=== PATIENT | female | born 1985 | race Caucasian/White ===

== ENCOUNTER 2023-11-03 07:49 | Outpatient (CLI) | payer OTHER, SELFPAY | END 2023-11-03 07:50 | disposition home or self-care (01) | LOC: ANHAUDASC 07:57 | PROVIDERS: PCP Family Medicine; Visit Provider Family Medicine | DX: H90.42 Sensorineural hearing loss, unilateral, left ear, with unrestricted hearing on the contralateral side (principal) | CPT/HCPCS: 92557; 92567 ==

== ENCOUNTER 2024-10-22 08:57 | Outpatient (CLI) | payer OTHER, SELFPAY ==
--- OUTSIDE RECORDS SUMMARY | 2024-10-22 09:49 | XMS_ITS | Referral Summary ---
Author Organization [facility] s Address [address] [place] [address] Care Team Providers Care Crop And Soil Technician Name Role Phone Kalli Salmeron MD Primary Care Provider + Kalli Salmeron MD Unavailable [phone] Allergies No known active allergies Medications sertraline (ZOLOFT) 100 mg tablet Take 100 mg by mouth maintenance person before breakfast 4 9 Active multivitamin capsule Take 1 capsule by mouth maintenance person before breakfast Active doxycycline hyclate 100 mg capsule Take 100 mg by mouth 2 (two) times a day 1 Active Active Problems Problem Noted Date Diagnosed Date Nipple discharge in female 04/07/2021 Abdominal pain 09/21/2020 Acute bronchitis 09/21/2020 Pharyngitis 09/21/2020 Postoperative hematoma of holloway bcutaneous tissue following non-dermatologic procedure 04/26/2019 Overview (04/26/2019): Added automatically from request for surgery [id number] Bilateral nipple discharge 02/11/2019 High-risk 06/10/2013 Antepartum hemorrhage 06/05/2013 Antepartum cervical incompetence 06/05/2013 Immunizations Immunization Administration Dates Next Due Influenza, Trivalent, High D ose, Split, Preservative Free, Intramuscular 07/31/2015,07/31/2014,09/28/2013 Tdap 09/28/2014,07/31/2013 Social History Tobacco Use Types Packs/Day Years Used Date Smoking Tobacco: Never Smokeless Tobacco: Never Tobacco Cessation:Counseling Given: No Alcohol Use Standard Drinks/Week Comments Yes 1 (1 standard drink = 0.6 oz pur e alcohol) AUDIT-C Answer Date Recorded Frequency of Alcohol Consumption 2-4 times a mon02/11/2019 Average Number of Drinks Not on file 019 Frequency of Binge Drinking Not on file 01/28 Comments No Sex and Gender Information Value Date Recorded Sex Assigned at Not on file Legal Sex Female 4:49 AM JAVASCRIPT DEVELOPER Gender Identity Female 04/04/2019 12:13 PM CDT Sexual Orientation Straight 04/04/2019 12 :13 PM CDT Last Filed Vital Signs Vital Sign Reading Time Taken Comments Blood Pressure 149/87 09/21/2020 3:29 PM JAVASCRIPT DEVELOPER Pulse 85 09/21/2020 3:29 PM JAVASCRIPT DEVELOPER Temperature 36.4 C (97.5 F) 04/26/2019 7:43 PM CDT Respiratory Rate 18 04/26/2019 8:30 PM CDT Oxygen Saturation 99% 04/26/2019 8:30 PM CDT Inhaled Oxygen Concentration - - Weight 88.9 kg (196 lb) 12/11/2023 2:01 PM CDT Height 157.5 cm (5' 2 ) 12/11/2023 2:01 PM CDT Body Mass Index 35.85 12/11/2023 2:01 PM CDT Plan of Treatment Not on file Insurance [facility] ACCESS ANTHEM ACCESS ANTHEM ACCESS [facility] CHOICE PLUS [facility] HMO/PPO Address: [place] [address] Care Teams Crop And Soil Technician Relationship Specialty Start Date End Date Kalli Salmeron MD PCP - General Family Medicine 08/25/20 Kalli Salmeron MD Family Medicine 08/25/20
--- OUTSIDE RECORDS SUMMARY | 2024-10-22 09:49 | XMS_ITS | Clinical Summary ---
Author Organization [facility] s Address [address] [place] [address] Care Team Providers Care Car Worker Helper Name Role Phone Kalli Salmeron MD Primary Care Provider + Kalli Salmeron MD Unavailable [phone] Allergies No known active allergies Medications sertraline (ZOLOFT) 100 mg tablet Take 100 mg by mouth logistics clerk before breakfast 4 9 Active multivitamin capsule Take 1 capsule by mouth logistics clerk before breakfast Active doxycycline hyclate 100 mg capsule Take 100 mg by mouth 2 (two) times a day 1 Active Active Problems Problem Noted Date Diagnosed Date Nipple discharge in female 04/07/2021 Abdominal pain 09/21/2020 Acute bronchitis 09/21/2020 Pharyngitis 09/21/2020 Postoperative hematoma of holloway bcutaneous tissue following non-dermatologic procedure 04/26/2019 Overview (04/26/2019): Added automatically from request for surgery [id number] Bilateral nipple discharge 02/11/2019 High-risk 06/10/2013 Antepartum hemorrhage 06/05/2013 Antepartum cervical incompetence 06/05/2013 Immunizations Immunization Administration Dates Next Due Influenza, Trivalent, High D ose, Split, Preservative Free, Intramuscular 07/31/2015,07/31/2014,09/28/2013 Tdap 09/28/2014,07/31/2013 Surgical History Surgery Date Site/Laterality Comments SECTION 07/31/2013 - 07/30/2014 DILATION AND CURETTAGE OF UTERUS 07/31/2015 - 07/30/2016 BREAST BIOPSY 02/25/2019 Left INTRAUTERINE DEVICE INSERTION removed 01/2018 Medical History Medical History Date Comments Depression Anxiety Family History Medical History Relation Name Comments Hypertension Father Hypertension - (Added by TW Conv) Stroke Maternal Grandfather Stroke Syndrome - (Added by TW Conv) Melanoma Mother's Sister Diabetes Paternal Grandmother Diabete s Mellitus - (Added by TW Conv) Anesthesia problems Neg Hx Relation Name Status Comments Father Maternal Grandfather Mother's Sister Paternal Grandmother Social History Tobacco Use Types Packs/Day Years [...] on file Legal Sex Female 4:49 AM TICKET AGENT Gender Identity Female 04/04/2019 12:13 PM CDT Sexual Orientation Straight 04/04/2019 12 :13 PM CDT Obstetrics History Para Term AB IAB SAB Ectopic Multiple Livin g Live Births 2 1 1 Date Outcome GA Total Labor Labor/2nd/3rd Weight Sex Type Anes PTL Arin A1 A5 Name Clin Term Last Filed Vital Signs Vital Sign Reading Time Taken Comments Blood Pressure 149/87 09/21/2020 3:29 PM TICKET AGENT Pulse 85 09/21/2020 3:29 PM TICKET AGENT Temperature 36.4 C (97.5 F) 04/26/2019 7:43 PM CDT Respiratory Rate 18 04/26/2019 8:30 PM CDT Oxygen Saturation 99% 04/26/2019 8:30 PM CDT Inhaled Oxygen Concentration - - Weight 88.9 kg (196 lb) 12/11/2023 2:01 PM CDT Height 157.5 cm (5' 2 ) 12/11/2023 2:01 PM CDT Body Mass Index 35.85 12/11/2023 2:01 PM CDT Plan of Treatment Health Maintenance Due Date Last Done Comments Cervical Cancer Screening 1987 Depression Screening 1987 Hepatitis C Screening 1987 Varicella Vaccines (1 of 2 - 13+ 2-dose series) 11/14/2000 Hepatitis B Screening 11/14/2005 Regular Well Visit/Exam 18-64 11/14/2005 Covid-19 Vaccine (2023- season) 2024 05/06/2021, 08/06/2020, 07/20/2020 Influenza Vaccine (#1) 2024 3, 04/27/2023, 04/29/2022, Additional history exists DTaP/Tdap/Td Vaccine (3 - Td or Tdap) 09/28/2024 09/28/2014, 07/31/2013 HPV Vaccines Aged Out No longer eligi ble based on patient's age to complete this topic Pneumococcal vaccine <65 Aged Out No longer eligible based on patient's age to complete this topic Insurance ANTHEM ACCESS ANTHEM ACCESS [facility] HMO/PPO Address: [address] [address] [place] [address] Care Teams Car Worker Helper Relationship Specialty Start Date End Date Kalli Salmeron MD PCP - General Family Medicine 08/25/20 Kalli Salmeron MD Family Medicine 08/25/20
--- OUTSIDE RECORDS SUMMARY | 2024-10-22 09:49 | XMS_ITS | Data Portability ---
Author Organization [facility] Address [address] [facility] [place] [address] Care Team Providers Care Field Training Manager Name Role Phone KELL ALFARO [employer] Unavailable Assessment Encounter Date Assessment Date Assessment LastModified by Organization Details LastModified Time 05/20/2016 05/20/2016 ACOG completed. Patient education handouts given. Not available 05/20/2016 11:24:52 Plan of Treatment Reminders Order Date Submit Date Provider Last Modified By Organization Details Last Modified Time Details Appointments None recorded. Lab biopsy, endometri al 2015 016 DBA_PATCH_2 [id number] [facility], [address] [place] [address], [address], 6 04:32:07 HCG, intact + beta subunit, quant, serum or plasma - Please fax results to [facility] 2015 016 DBA_PATCH_2 [id number] [facility], [address] [place] [address], [address], 6 04:31:34 HCG, intact + beta subunit, quant, serum or plasma - Please fax results to [facility] 2015 016 DBA_PATCH_2 [id number] [facility], [address] [place] [address], [address], 6 04:31:49 CBC w/ auto diff - Please fax results to [facility] 2015 016 [email or web address] [facility], [address] [place], [address], 6 09:16:40 CBC w/ auto diff - Please fax results to [facility] 2015 016 DBA_PATCH_2 [id number] [facility], [address] [place], [address], 6 04:32:02 CMP, serum or plasma 2015 016 DBA_PATCH_2 [id number] [facility], [address] [place] [address], [address], 6 04:31:45 CMP, serum or plasma 2015 016 DBA_PATCH_2 [id number] [facility], [address] [place] [address], [address], 6 04:32:02 Referral None recorded. Procedures None recorded. Surgeries None recorded. Imaging US, pelvis 2015 016 DBA_PATCH_2 [id number] [facility] ([facility]), [address] [place], [address], 6 04:31:59 Medication Orders misoprost ol 100 mcg tablet 2015 016 [email or web address] [facility], [address] [place], [address], 7 14:51:27 ferrous sulfate 325 mg (65 mg iron) tablet 2015 016 DBA_PATCH_2 [id number] [facility], [address] [place], [address], 6 04:31:42 Vitamin tablet 2015 016 DBA_PATCH_2 [id number] [facility], [address] , [place], [address], 6 04:31:33 Patient TargetsNo targets recorded. Patient Instructions Encounter Date Encounter Id Patient Instructions Last Modified By Organization Details Last Modified Time 06/16/2016 [id number] admit to outpatient* Not available 07/16/2016 04:31:43 bleeding after surgery: care instructions [email or web address] Not available 06/16/2016 11:52:23 [email or web address] Not available 07/16/2016 04:31:45 anemia: care instructions [email or web address] Not available 06/16/2016 18:12:09 Reason for Referral None Reported. Results Created Date Observation Date Name Description Value Unit Range Abnormal Flag Note LastModifiedBy Organization Detail LastModifiedTime 05/05/20 16 05/05/2016 urina lysis , dipst ick Leukocytes Small Not Available In-Offi ce Order Internal Use Only DO Not Attach Compendium DO Not Attach Compendium, Do Not Delete/merge, [id number] 05/05/2016 11:23:49 05/05/20 16 05/05/2016 urina lysis , dipst ick Nitrite negati ve Not Available In-Office Order Internal Use Only DO Not Attach Compendium DO Not Attach Compendium, Do Not Delete/merge, [id number] 05/05/2016 11:23:49 05/05/20 16 05/05/2016 urina lysis , dipst ick Urobilinogen .2 Not Available In-Of fice Order Internal Use Only DO Not Attach Compendium DO Not Attach Compendium, Do Not Delete/merge, [id number] 05/05/2016 11:23:49 05/05/20 16 05/05/2016 urina lysis , dipst ick Protein Negati ve Not Available In-Office Order Internal Use Only DO Not Attach Compendium DO Not Attach Compendium, Do Not Delete/merge, [id number] 05/05/2016 11:23:49 05/05/20 16 05/05/2016 urina lysis , dipst ick pH 7.0 Not Available In-Office Order Internal Use Only DO Not Attach Compendium DO Not Attach Compendium, Do Not Delete/merge, [id number] 05/05/2016 11:23:49 05/05/20 16 05/05/2016 urina lysis , dipst ick Blood Negati ve Not Available In-Office Order Internal Use Only DO Not Attach Compendium DO Not Attach Compendium, Do Not Delete/merge, [id number] 05/05/2016 11:23:49 05/05/20 16 05/05/2016 urina lysis , dipst ick Specific [place] 1.010 Not Available In-Off ice Order Internal Use Only DO Not Attach Compendium DO Not Attach Compendium, Do Not Delete/merge, [id number] 05/05/2016 11:23:49 05/05/20 16 05/05/2016 urina lysis , dipst ick Ketone Negati ve Not Available In-Office Order Internal Use Only DO Not Attach Compendium DO Not Attach Compendium, Do Not Delete/merge, [id number] 05/05/2016 11:23:49 05/05/20 16 05/05/2016 urina lysis , dipst ick Bilirubin Negati ve Not Available In-Office Order Internal Use Only DO Not Attach Compendium DO Not Attach Compendium, Do Not Delete/merge, [id number] 05/05/2016 11:23:49 05/05/20 16 05/05/2016 urina lysis , dipst ick Glucose Negati ve Not Available In-Office Order Internal Use Only DO Not Attach Compendium DO Not Attach Compendium, Do Not Delete/merge, [id number] 05/05/2016 11:23:49 05/05/20 16 05/05/2016 pregn theresa test, urine HCG positi ve Not Available In-Office Order Internal Use Only DO Not Attach Compendium DO Not Attach Compendium, Do Not Delete/merge, [id number] 05/05/2016 11:23:49 05/04/20 16 09/29/2013 XR, abdom en No observ ation record ed. Not Available 2015 11:31:33 05/04/20 16 09/18/2013 US, obste tric, bioph ysica l profi le No observ ation record ed. Not Available 2015 11:33:05 05/04/20 16 07/19/2013 US, obste tric No observ ation record ed. Not Available 2015 11:33:30 05/04/20 16 06/03/2013 US, obste tric No observ ation record ed. Not Available 2015 11:34:28 05/04/20 16 05/30/2013 US, obste tric, trans vagin al No observ ation record ed. Not Available 2015 11:35:07 05/04/20 16 06/03/2013 US, obste tric No observ ation record ed. Not Available 2015 11:35:57 05/04/20 16 05/27/2013 US, obste tric No observ ation record ed. Not Available 2015 11:37:15 05/04/20 16 04/25/2013 US, obste tric No observ ation record ed. Not Available 2015 11:37:55 05/04/20 16 04/24/2013 US, obste tric, 2nd or 3rd trime ster No observ ation record ed. Not Available 2015 11:38:30 05/04/20 16 02/20/2013 US, obste tric, 1st trime ster No observ ation record ed. Not Available 2015 11:38:52 05/06/20 16 05/06/2016 US, obste tric, 1st trime ster No observ ation record ed. [facility] ([facility]) [address] [place], [address], 05/08/2016 09:15:19 05/23/20 16 05/23/2016 US, obste tric, 1st trime ster No observ ation record ed. [facility] ([facility]) [address] [place], [address], 05/30/2016 10:46:43 05/23/20 16 05/23/2016 US, obste tric, 1st trime ster No observ ation record ed. [facility] ([facility]) [address] [place], [address], 05/28/2016 09:14:45 06/16/20 16 06/16/2016 US, trans vagin al No observ ation record ed. [facility] [address] [place], [address], 06/20/2016 17:51:42 06/22/20 16 06/22/2016 US, trans vagin al No observ ation record ed. [facility] (Imaging) [address] [place], [address], 06/24/2016 23:10:51 06/22/20 16 06/22/2016 US, trans vagin al No observ ation record ed. [facility] ([facility] Sched[facility]) [address] [place], [address], 06/24/2016 23:10:51 06/22/20 16 06/22/2016 US, trans vagin al No observ ation record ed. [facility] ([facility] Sched[facility]) [address] [place], [address], 06/22/2016 16:38:26 07/01/20 16 06/16/2016 US, trans vagin al No observ ation record ed. [facility] ([facility]) [address] [place], [address], 07/04/2016 18:32:32 Result Notes None recorded. Problems Name Problem SNOMED Code Status Onset Date Resolution Date Notes Provider Name and Address Organization Details Recorded Time depression 33783221 Completed 201606/23/2017 Kell rincon [place] - [facility] 7 11:00:14 depression 27431844 Active 2016 Kell rincon [place] - [facility] 7 11:00:14 Sinusitis 65757758 Active Kell rincon [facility] 6 09:13:32 Deliveries by [id number] Active Amy Melendez null, [facility] 16:35:58 Deliveries by [id number] Completed Amy rincon, [facility] 16:35:58 Abnormal progesteron e 124528500 Active Amy Melendez null, [facility] 6 16:35:58 Abnormal progesteron e 977975893 Completed Amy rincon, [facility] 6 16:35:58 Problem Notes None recorded. Procedures Surgical History Date Name Laterality Status Provider Name and Address Organization Details Recorded Time 06/16/20 16 Endometrial Biopsy completed Kell Alfaro [facility] 06/16/2016 16:52:05 05/05/20 16 Date of Last Pap Smear completed Bong Ko RN [facility] 05/20/2016 11:06:07 09/30/19 14 Caesarean Section completed Frances Millan MA [facility] 05/05/2016 11:12:31 Imaging Results Imaging Date Name Status LastModified by Organization Details LastModified Time 09/29/2013 XR, abdomen completed Information n ot available 05/05/2016 11:31:33 09/18/2013 US, obstetric, biophysical profile completed Information not available 05/05/2016 11:33:05 07/19/2013 US, obstetric completed Information not available 05/05/2016 11:33:30 06/03/2013 US, obstetric completed Information not available 05/05/2016 11:34:28 05/30/2013 US, obstetric, transvaginal completed Information not available 05/05/2016 11:35:07 06/03/2013 US, obstetric completed Information not available 05/05/2016 11:35:57 05/27/2013 US, obstetric completed Information not available 05/05/2016 11:37:15 04/25/2013 US, obstetric completed Information not available 05/05/2016 11:37:55 04/24/2013 US, obstetric, 2nd or 3rd trimester completed Information not available 05/05/2016 11:38:30 02/20/2013 US, obstetric, 1st trimester completed Information not available 05/05/2016 11:38:52 05/06/2016 US, obstetric, 1st trimester completed [facility] ([facility]) [address] [place], [address], 05/08/2016 09:15:19 05/23/2016 US, obstetric, 1st trimester completed [facility] ([facility]) [address] [place], [address], 05/30/2016 10:46:43 05/23/2016 US, obstetric, 1st trimester completed [facility] ([facility]) [address] [place], [address], 05/28/2016 09:14:45 06/16/2016 US, transvaginal completed [facility] [address] [place], [address], 06/20/2016 17:51:42 06/22/2016 US, transvaginal completed [facility] (Imaging) [address] [place], [address], 06/24/2016 23:10:51 06/22/2016 US, transvaginal [facility] ([facility] Sched[facility]) [address] [place], [address], 06/24/2016 23:10:51 06/22/2016 US, transvaginal completed [facility] ([facility] Sched[facility]) [address] [place], [address], 06/22/2016 16:38:26 06/16/2016 US, transvaginal [facility] ([facility] Sched[facility]) [address] [place], [address], 07/04/2016 18:32:32 Procedure Notes None recorded. Medical Equipment None Reported. Allergies No known drug allergies Medications Name Sig Start Date Stop Date Status Note LastModified by Organization Details LastModified Time multivitami n tablet Take 1 tablet every day by oral route. 2016 active Not Available Not Available Not Avai lable metformin 500 mg tablet TAKE ONE TABLET BY MOUTH TWICE A DAY 2016 active Not Available Not Available Not Avai lable cetirizine 10 mg tablet Take 1 tablet every day by oral route. 2017 active Not Available Not Available Not Avai lable azithromyci n 250 mg tablet TAKE 2 TABLETS (500 MG) BY ORAL ROUTE ONCE DAILY FOR 1 DAY THEN 1 TABLET (250 MG) BY ORAL ROUTE ONCE DAILY FOR 4 DAYS 2017 active Not Available Not Available Not Avai lable ibuprofen 800 mg tablet TAKE 1 TABLET BY MOUTH THREE TIMES DAILY NEEDED FOR CRAMPS active Not Available Not Available No t Available fluconazole 150 mg tablet Take 1 tablet by oral route. 2016 active Not Available Not Available Not Avai lable Claritin 10 mg tablet Take 1 tablet every day by oral route. 05/20 completed Not Available Not Available Not Available sertraline 100 mg tablet TAKE 1 TABLET BY MOUTH EVERY DAY active Not Available Not Available No t Available acetaminoph en 300 mg-codeine 30 mg tablet Take 1 tablet every 4 hours by oral route. 05/04 completed Not Available Not Available Not Available ketorolac 10 mg tablet Take 1 tablet every 6 hours by oral route for 5 days. 05/04 completed Not Available Not Available Not Available Vitamin tablet Take 1 tablet every day by oral route as directed for 90 days. 2015 active Not Available Not Available Not Avai lable dicyclomine 20 mg tablet 05/20 completed Not Available Not Available Not Available ferrous sulfate 325 mg (65 mg iron) tablet Take 1 tablet twice a day by oral route. 2015 active Not Available Not Available Not Avai lable Guaifenesin AC 10 mg-100 mg/5 mL oral liquid 05/20 completed Not Available Not Available Not Available misoprostol 100 mcg tablet Take 2 tablets every 4 hours by oral route for 7 days. 05/04 completed Not Available Not Available Not Available norgestimat e-ethinyl estradiol 0.18mg/0.21 5mg/0.25mg- 0.035mg(28) tablet Take 1 tablet every day by oral route. 05/04 completed Not Available Not Available Not Available montelukast 10 mg tablet Take 1 tablet every day by oral route. 2017 active Not Available Not Available Not Avai lable fluticasone propionate 50 mcg/actuati on nasal spray,suspe nsion [place] 1 spray every day by intranasa l route. 2017 active Not Available Not Available Not Avai lable sertraline 50 mg tablet TAKE 1 TABLET BY MOUTH EVERY DAY IN THE MORNING 2017 active Not Available Not Available Not Avai lable progesteron e micronized 100 mg capsule Take 1 capsule twice a day by oral route. 05/04 completed Not Available Not Available Not Available amoxicillin 875 mg-potassiu m clavulanate 125 mg tablet 05/20 completed Not Available Not Available Not Available Ventolin HFA 90 mcg/actuati on aerosol inhaler active Not Available Not Available Not Available Lo Loestrin Fe 1 mg-10 mcg (24)/10 mcg (2) tablet Take 1 tablet every day by oral route. 2016 active Not Available Not Available Not Avai lable Tiny 3 mg-0.03 mg tablet 1qd 2016 active Not Available Not Available Not Avai lable Gummies Girls' Multivitami ns chewable tablet Take 1 tablet twice a day by oral route. 2015 active Not Available Not Available Not Avai lable calcium 600 mg (as carbonate)- vitamin D3 20 mcg (800 unit) tablet Take 1 tablet twice a day by oral route. 2016 active Not Available Not Available Not Avai lable Caltrate Gummy Bites 250 mg-10 mcg (400 unit) chewable tablet Take 1 tablet twice a day by oral route. 2015 active Not Available Not Available Not Avai lable Vitals Date Recorded Body height Provider Name an d Address Organization Details Last Updated DateTime 05/20/2016 157.48 cm Bong Ko RN [place] - [facility] 016 10:58:21 Date Recorded Body height Body weight Body mass index (BMI) Systolic blood pressure Diastolic blood pressure Provider Name and Address Organization Details Last Updated DateTime 06/16/2016 157.48 cm 29581.07 g 31.8 kg/m2 126 mm[Hg] 84 mm[Hg] Frances Millan MA [place] - [facility] 6 10:19:56 Social History Question Answer Notes LastModified by Organizat ion Details LastModified Time Tobacco Smoking Status Never Smoker Bong Ko RN null, [place] [facility] 05/20/2016 11:01:35 Do You Have An Advance Directive? No Information not available 05/05/2016 What Is Your Level Of Alcohol Consumption? None Information not available 05/05/2016 If You Are , What Was Your Level Of Alcohol Consumption Prior To ? Occasional Information not available 05/05/2016 How Many Years Have You Consumed Alcohol? 0 [email or web address] Information not available 05/05/2016 Is Anesthesia Consult Planned? Yes Information not available 05/05/2016 Plan No Information no t available 05/05/2016 Is Blood Transfusion Acceptable In An Emergency? Yes Information not available 05/05/2016 What Is Your Level Of Caffeine Consumption? Moderate Information not available 05/05/2016 Live With Cats/exposure To Cat Litter No Information not available 05/05/2016 How Much Tobacco Do You Chew? None Information not available 05/05/2016 Are You Currently Employed? Yes [employer] [email or web address] Information not available 05/20/2016 What Type Of Diet Are You Following? REGULAR Information not available 05/05/2016 Which Illicit Or Recreational Drugs Have You Used? 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 No Information not available 05/05/2016 Frequent Air Travel No Information not available 05/05/2016 Live Alone Or With Others? With Others And Child [email or web address] Information not available 05/20/2016 Marital Status Informatio n not available 05/05/2016 How Many Children Do You Have? 1 Information not available 05/05/2016 Are There Any Occupational Health Risks Where You Work? Yes Information not available 05/05/2016 Seat Belts Used Routinely Yes Information not available 05/05/2016 Are You Sexually Active? Yes Information not available 05/05/2016 Do You Have Smoke And Carbon Monoxide Detectors In Your Home? Yes Information not available 05/05/2016 Are You Passively Exposed To Smoke? Yes Information not available 05/05/2016 How Much Tobacco Do You Smoke? No [email or web address] Information not available 05/05/2016 Smoking Pre- No Information not available 05/05/2016 General Stress Level Medium Information not available 05/05/2016 Do You Use Sunscreen Routinely? Yes Information not available 05/05/2016 Supplements Pernatal Vitamin Information not available 05/05/2016 How Many Years Have You Smoked Tobacco? 0 [email or web address] Information not available 05/05/2016 Sex: Unknown Functional Status Question Answer Note LastModified by Organizat ion Details LastModified Time What is your exercise level? Occasional Information not available 05/05/2016 Mental Status None recorded. Family History Relationship Description Onset Age of this Age Resolved Age Notes LastModified by Organization Details LastModified Time Father Alcohol abuse [email or web address] Not available 05/08 09:08:04 Father Heart disease [email or web address] Not available 05/08 09:08:04 Father Hypertensive disorder [email or web address] Not available 05/08 09:08:04 Father Migraine [email or web address] Not availab le 05/08/2016 09:08:04 Medical History Condition Response Other N High Blood Pressure N Breast Cancer N Thyroid Problems N Kidney or Bladder Problems N GI Problems N Depression Y Blood Clots N Lung Disease N Acne N Breast Problem N Eating Disorder N Anemia Y Anesthesia Complications N Headaches/Migraines N Anxiety Disorder N Diabetes N Ovarian Cancer N Muscle, Joint, or Bone Problems N Blood Transfusions N Seizures/Epilepsy N Polyps N Infertility N Acid Reflux (GERD) N Cancer N Abuse/Domestic Violence N Asthma N Endometriosis N High Cholesterol N Hepatitis N Liver Disease N Heart Disease N Pre-Eclampsia N Osteoporosis N Gynecological History Statement/Question Response Abnormal Pap N Flow Moderate On BCP's at Conception? N STIs/STDs N HPV Vaccine Y Duration of Flow (days) 7 Age at Menarche 15 Current Control Method None Age at First Child 27 Frequency of Cycle (Q days) Sexually Active? Y Menses Monthly N Date of Last Pap Smear 05/05/2016 Sexual Problems? N LMP Definite Desired Control Method BCPs Obstetrics History GPAL:G 2 P 1 0 0 1 Type Value Full Term 1 Living 1 Total 2 Immunizations Vaccine Type Date Status Note Provider Nam e and Address Organization Details Recorded Time Influenza, high-dose, trivalent, PF 07/31/2015 completed Kell Angelina null, [place] - [facility] 05/08/2016 09:09:06 Tdap 07/31/2013 completed Kell Alfaro mckenzie [place] - [facility] 05/08/2016 09:09:36 Influenza, high-dose, trivalent, PF 07/31/2014 completed Kell Alfaro mckenzie [place] - [facility] 05/08/2016 09:13:32 Tdap 09/28/2014 completed Kell rincon [place] - [facility] 05/08/2016 09:13:32 Influenza, high-dose, trivalent, PF 09/28/2013 completed Kell rincon [place] - [facility] 05/08/2016 09:13:32 Past Encounters Encounter ID Performer Location Encounter Start Date Encounter Closed Date Diagnosis/Indication Diagnosis SNOMED-CT Code Diagnosis ICD10 Code Diagnosis Note [id number] Kell Young (3RD PRESSMAN) [address] [place] [address] [phone] 05/05/2016 10:21:52 05/08/2016 09:27:03 Routine care 665721418 Z34.81 Deliveries by [id number] ALPA Hughes (3RD PRESSMAN) [address] [place] [phone] 05/20/2016 10:34:54 05/20/2016 11:25:56 [id number] Kell Young (3RD PRESSMAN) [address] [place] [address] [phone] 06/16/2016 10:04:42 06/17/2016 11:50:58 Retained products of conception 290506172 O72.2 s/p missed ab D&C 05/28/16 Postoperat karon hemorrhage 390326911 N99.820 Anemia 107406408 D64.9 Health Concerns Section Related Observation LastModified by Organization Detai ls LastModified Time None Recorded Concern Status LastModified by Organization Details LastModified Time None Recorded Advance Directives Directive N: Payers Encounter Date Sequence Insurance Name Policy Number Policy Roy Covered Member ID Roy Member ID Guarantor Name 05/20/2016 1 [id number] Denae Michaelandrew [id number] Denae Michaelandrew 06/16/2016 1 [id number] Denae Michaelobdulio [id number] Denae Bolobdulio Notes Date Note Type Note Provider Name and Address Organization Details Recorded Time 06/16/2016 text/html Abnormal BleedingReported bypatient.Onset/Timing :new onset bleeding Duration:almost daily Quality:heavy; passing clots Severity:changing pad/tampon every 1-2 hours; requires double protection; interferes with daily activities; requires getting up at night; bleeding through onto clothes/sheets Context:history of psychology clinician surgery: (05/28/16 D&C) Associated Symptoms:no dysmenorrhea; no pelvic pain; no abdominal pain; no dyspareunia; no shortness of breath; no CP/palpitations; no bloating; no change in bowel function; no urinary symptoms; no PMS; no vaginal discharge; no vaginal itching/irritation;fat igue;dizziness;anemia/ iron supplements 30yo WF [id number] s/pD&C on 05/18/16 post op hypermenorrhea Kell Alfaro [facility], [place] - [facility] 06/16/2016 18:49:06 OBGyn Episode Ob Episode Information Episode Created Date Number of Fetuses Patient Bloodtype Patient rh Status Prepregnancy Weight lbs Domestic Partner Domestic Partner Phone Father Name Credit Operations Specialist Status 05/05/20 16 1 A Positive [address] [place] CLOSED Fetus Data First Name Last Name Admitted to NICU Weight (g) Sex Living Outcome Pediatric Complications Fetus ID Race Codes Race Delivery Type Demise [id number] White Problems Problem Notes Problem Name Start Date End Date Resolution Snomed Code Not e Abnormal progesterone [id number] 0 Deliveries by [id number] Steve Calculation Initial Steve Date Initial Exam Date Initial Exam Provider Initial Ultrasound Date Last Menstrual Period Date Ultra Sound Weeks Gestation 12/27/2016 05/05/2016 [email or web address] 05/06/2016 02/28/2016 0 Eighteen To Twenty Week Steve Update Ultra Sound Date Fundal Height At Umbil Quickening Date Ultra Sound Latest Weeks Gestation Final Steve Confirmed By Final Steve Confirmed Date Final Steve Date Ultra Sound Latest Days Gestation 0 12/28/19 17 0 Pre- Flowsheet Flowsheet Date 05/05/2016 Paulino Score Blood Edema Fundus Height Fundus Units Glucose Ketones Leukocytes Nitrite Labor Signs Protein Cervic Dilation Cervic Effacement Cervic Station neg none 9 wks none negative none neg Type Weight in lbs Pre/Post Dialysis Refused 172.089691881390 BP Diastolic BP Location Tested BP Systolic BP Type 82 130 sitting Fetus Heart Rate Present Fetus Movement A No Comments NOB Flowsheet Date 05/20/2016 Paulino Score Blood Edema Fundus Height Fundus Units Glucose Ketones Leukocytes Nitrite Labor Signs Protein Cervic Dilation Cervic Effacement Cervic Station Type Weight in lbs Pre/Post Dialysis Refused BP Diastolic BP Location Tested BP Systolic BP Type Fetus Heart Rate Present Fetus Movement Comments Menstrual History Last Menstrual Date Menses Monthly On Bcp Conception Prior Menses Frequency Hcg Plus Date Menarche Onset Age 0702/28/2016 false false 01/27/2016 04/11/20 1 6 13 Genetic Screening And Infection History Question Response Note Patient's Age Will Be 35 Yea rs Or Older At Estimated Date of Delivery false Thalassemia (Urdu, Thai, Mediterranean, Or Background): MCV < 80 false Neural Tube Defect (Meningom yelocele, Spina Bifida, Or Anencephaly) false Congenital Heart Defect false Down Syndrome false Stevie-Sachs (eg, Church, Cajun, Macedonian-Botetourt) f alse Jenna Disease false Sickle Cell Disease Or Trait () false Hemophilia Or Other Blood Disorders false Muscular Dystrophy false Cystic Fibrosis false Smackover's Chorea false Mental Retardation/Autism false If Yes, Was Person Tested For Fragile X? false Other Inherited Genetic Or Chromosomal Disorder false Maternal Metabolic Disorder (eg, Type 1 Diabetes , PKU) false Patient Or Baby's Father Had A Child With Defects Not Listed Above false Recurrent Loss, Or A Stillbirth false Medications (including Suppl ements, Vitamins, Herbs, OTC Drugs), Illicit/Recreational Drugs, Alcohol true v itamin If Yes, Agent(s) And Strength/Dosage false Any Other Genetic History false Live With Someone With TB Or Exposed To TB false Patient Or Partner Has History Of Genital Herpes false Rash Or Viral Illness Since Last Menstrual Perio d false History Of STD, Gonorrhea, Chlamydia, HPV, Syphi lis false Other Infection History false Delivery Information Delivery Date Delivery Type Labor Anesthesia Weeks Gestation Incision Type Labor Labor Length Hrs Delivered By Post Complications Tubal Sterilization Discharge Date Comments 6 9.4 IUFD Discharge Information Feeding Method Contraceptive Method Maternal HG B and HCT Levels Ob Episode Information Episode Created Date Number of Fetuses Patient Bloodtype Patient rh Status Prepregnancy Weight lbs Domestic Partner Domestic Partner Phone Father Name Credit Operations Specialist Status 05/05/20 16 1 CLOSED Fetus Data First Name Last Name Admitted to NICU Weight (g) Sex Living Outcome Pediatric Complications Fetus ID Race Codes Race Delivery Type 3798.83 3 M Full Term [id number] Steve Calculation Initial Steve Date Initial Exam Date Initial Exam Provider Initial Ultrasound Date Last Menstrual Period Date Ultra Sound Weeks Gestation 0 Eighteen To Twenty Week Steve Update Ultra Sound Date Fundal Height At Umbil Quickening Date Ultra Sound Latest Weeks Gestation Final Steve Confirmed By Final Steve Confirmed Date Final Steve Date Ultra Sound Latest Days Gestation 0 0 Menstrual History Last Menstrual Date Menses Monthly On Bcp Conception Prior Menses Frequency Hcg Plus Date Menarche Onset Age Delivery Information Delivery Date Delivery Type Labor Anesthesia Weeks Gestation Incision Type Labor Labor Length Hrs Delivered By Post Complications Tubal Sterilization Discharge Date Comments 4 Regional-Ep idural 39 14 Discharge Information Feeding Method Contraceptive Method Maternal HG B and HCT Levels
--- OUTSIDE RECORDS SUMMARY | 2024-10-22 09:49 | XMS_ITS | Data Portability ---
Author Organization [place] - [facility]- Address [address] [place] [address] Assessment Encounter Date Assessment Date Assessment LastModified by Organization Details LastModified Time 04/27/2023 04/27/2023 Information regarding the particular vaccine that patient is receiving today was presented to the parent(s). All questions were answered Not available 04/27/2023 12:01:07 05/04/2024 05/04/2024 Information regarding the particular vaccine that patient is receiving today was presented to the parent(s). All questions were answered [email or web address] Not available 05/03/2024 13:06:19 Plan of Treatment Reminders Order Date Submit Date Provider Last Modified By Organization Details Last Modified Time Details Appointments None recorded . Lab rapid strep group A, throat [address] [place] [address], [place], [address], 4 12:43:48 rapid strep group A, throat [address], [place], [address], 4 09:41:55 [facility] [address], [place], [address], 4 19:37:28 Referral None recorded . Procedures None recorded . Surgeries None recorded . Imaging None recorded . Medication Orders None recorded . Patient TargetsNo targets recorded. Patient Instructions Encounter Date Encounter Id Patient Instructions Last Modified By Organization Details Last Modified Time 04/27/2023 [id number] influenza (flu) vaccine (inactivated or recombinant): what you need to know Not available 04/27/2023 12:01:15 10/18/2023 [id number] strep throat: care instructions [email or web address] Not available 10/18/2023 19:37:28 05/04/2024 [id number] influenza (flu) vaccine (inactivated or recombinant): what you need to know [email or web address] Not available 05/04/2024 08:35:45 Reason for Referral None Reported. Results Created Date Observation Date Name Description Value Unit Range Abnormal Flag Note LastModifiedBy Organization Detail LastModifiedTime 10/18/19 24 10/18/2023 rapid strep group A, throa t Result positi ve Not Available [facility] [address], [place], [address], 10/18/2023 09:08:31 11/02/19 24 11/02/2023 rapid strep group A, throa t Result positi ve Not Available [facility] [address], [place], [address], 11/02/2023 09:20:36 12/11/19 24 12/12/2023 LIPID PANEL , STAND ELOISA cholesterol, total 145 mg/dL <200 normal Not Available [employer] [facility] [address] [address] [place], [address], 12/12/2023 02:27:33 12/11/19 24 12/12/2023 LIPID PANEL , STAND ELOISA HDL cholesterol 49 mg/dL > or = 50 low Not Available [facility] [address] [address] [place], [address], 12/12/2023 02:27:33 12/11/19 24 12/12/2023 LIPID PANEL , STAND ELOISA triglyceride s 56 mg/dL <150 normal Not Available [employer] [address] [address] [place], [address], 12/12/2023 02:27:33 12/11/19 24 12/12/2023 LIPID PANEL , STAND ELOISA LDL-choleste rol 82 mg/dL _(long c) normal Refer ence range : <100 Jose able range <100 mg/dL for prima ry preve ntion ; <70 mg/dL for patie nts with CHD or diabe tic patie nts with > or = 2 CHD risk facto rs. LDL-C is now calcu lated using the Payal n-Hop kins calcu robbie n, which is a valid ated novel metho d provi ding aime r accur acy than the Fried andrew equat ion in the estim ation of LDL-C . Payal lucas SS et al. TON. 2013; 310(1 9): 2061- 2068 (http ://ed ucati on.Magiq apolinarEVERYWARE. com/f aq/FA Q164) Not Available [employer] [facility] [address] [address] [place], [address], 12/12/2023 02:27:33 12/11/19 24 12/12/2023 LIPID PANEL , STAND ELOISA chol/HDLC ratio 3.0 (calc ) <5.0 normal Not Available [employer] [address], [address], 12/12/2023 02:27:33 12/11/19 24 12/12/2023 LIPID PANEL , STAND ELOISA non HDL cholesterol 96 mg/dL _(long c) <130 normal For patie nts with diabe carlton plus 1 major ASCVD risk facto r, treat ing to a non-H DL-C goal of <100 mg/dL (LDL- C of <70 mg/dL ) is consi dered a thera peuti c optio n. Not Available [employer] [facility] [address] [address] [place], [address], 12/12/2023 02:27:33 12/11/1912/12/2023 COMPR EHENS TANIKA METAB OLIC PANEL glucose 89 mg/dL 65-99 normal Fasti ng refer ence inter juan Not Available [employer] [facility] [address] [address] [place], [address], 12/12/2023 02:27:34 12/11/19 24 12/12/2023 COMPR EHENS TANIKA METAB OLIC PANEL urea nitrogen (BUN) 15 mg/dL 7-25 normal Not Available [address], [address], 12/12/2023 02:27:34 12/11/19 24 12/12/2023 COMPR EHENS TANIKA METAB OLIC PANEL creatinine 0.87 mg/dL 0.50-0 .97 normal Not Available [address], [address], 12/12/2023 02:27:34 12/11/19 24 12/12/2023 COMPR EHENS TANIKA METAB OLIC PANEL eGFR 88 mL/mi n/1.7 3m2 > or = 60 normal Not Available [address], [address], 12/12/2023 02:27:34 12/11/19 24 12/12/2023 COMPR EHENS TANIKA METAB OLIC PANEL BUN/creatini ne ratio SEE NOTE: (calc ) 6-22 Not Repor paul: BUN and Creat inine are withi n refer ence range . Not Available [address], [address], 12/12/2023 02:27:34 12/11/19 24 12/12/2023 COMPR EHENS TANIKA METAB OLIC PANEL sodium 138 mmol/ L 135-14 6 normal Not Available [address], [address], 12/12/2023 02:27:34 12/11/19 24 12/12/2023 COMPR EHENS TANIKA METAB OLIC PANEL potassium 4.4 mmol/ L 3.5-5. 3 normal Not Available [address], [address], 12/12/2023 02:27:34 12/11/19 24 12/12/2023 COMPR EHENS TANIKA METAB OLIC PANEL chloride 104 mmol/ L 98-110 normal Not Available [address], [address], 12/12/2023 02:27:34 12/11/19 24 12/12/2023 COMPR EHENS TANIKA METAB OLIC PANEL carbon dioxide 27 mmol/ L 20-32 normal Not Available [address], [address], 12/12/2023 02:27:34 12/11/19 24 12/12/2023 COMPR EHENS TANIKA METAB OLIC PANEL calcium 9.1 mg/dL 8.6-10 .2 normal Not Available [address], [address], 12/12/2023 02:27:34 12/11/19 24 12/12/2023 COMPR EHENS TANIKA METAB OLIC PANEL protein, total 7.5 g/dL 6.1-8. 1 normal Not Available [address], [address], 12/12/2023 02:27:34 12/11/19 24 12/12/2023 COMPR EHENS TANIKA METAB OLIC PANEL albumin 4.4 g/dL 3.6-5. 1 normal Not Available [address], [address], 12/12/2023 02:27:34 12/11/19 24 12/12/2023 COMPR EHENS TANIKA METAB OLIC PANEL globulin 3.1 g/dL_ (calc ) 1.9-3. 7 normal Not Available [address], [address], 12/12/2023 02:27:34 12/11/19 24 12/12/2023 COMPR EHENS TANIKA METAB OLIC PANEL albumin/glob ulin ratio 1.4 (calc ) 1.0-2. 5 normal Not Available [address], [address], 12/12/2023 02:27:34 12/11/19 24 12/12/2023 COMPR EHENS TANIKA METAB OLIC PANEL bilirubin, total 0.3 mg/dL 0.2-1. 2 normal Not Available [address], [address], 12/12/2023 02:27:34 12/11/19 24 12/12/2023 COMPR EHENS TANIKA METAB OLIC PANEL alkaline phosphatase 60 U/L 31-125 normal Not Available [address], [address], 12/12/2023 02:27:34 12/11/19 24 12/12/2023 COMPR EHENS TANIKA METAB OLIC PANEL AST 14 U/L 10-30 normal Not Available [address], [address], 12/12/2023 02:27:34 12/11/19 24 12/12/2023 COMPR EHENS TANIKA METAB OLIC PANEL ALT 11 U/L 6-29 normal Not Available [address], [address], 12/12/2023 02:27:34 07/15/20 24 07/15/2024 rapid strep group A, throa t Result positi ve Not Available [facility] [address], [place], [address], 07/15/2024 09:41:03 07/22/20 24 07/22/2024 rapid strep group A, throa t Result positi ve Not Available [facility] [address], [place], [address], 07/22/2024 12:40:28 Result Notes None recorded. Problems No Known Problems Medical Equipment None Reported. Allergies No known drug allergies Medications Name Sig Start Date Stop Date Status Note LastModified by Organization Details LastModified Time amoxicillin 500 mg capsule TAKE 2 CAPSULES BY MOUTH EVERY DAY IN THE MORNING FOR 10 DAYS 01/08 completed Not Available Not Available Not Available azithromyci n 250 mg tablet 08/31 completed Not Available Not Available Not Available fluconazole 150 mg tablet TAKE 1 TABLET BY MOUTH DIRECTED 08/31 completed Not Available Not Available Not Available valacyclovi r 1 gram tablet TAKE 1 TABLET BY MOUTH EVERY 12 HOURS active Not Available Not Available No t Available sertraline 100 mg tablet TAKE 2 TABLETS BY MOUTH DAILY active Not Available Not Available No t Available metronidazo le 500 mg tablet TAKE 1 TABLET BY MOUTH TWICE DAILY FOR 7 DAYS active Not Available Not Available No t Available amoxicillin 500 mg tablet Take 1 tablet every 12 hours by oral route for 10 days. 08/31 completed Not Available Not Available Not Available ondansetron 8 mg disintegrat ing tablet DISSOLVE 1 TABLET ON THE TONGUE EVERY 8 HOURS NEEDED active Not Available Not Available No t Available amoxicillin 875 mg tablet TAKE 1 TABLET BY MOUTH EVERY 12 HOURS FOR 10 DAYS 01/08 completed Not Available Not Available Not Available cephalexin 500 mg capsule TAKE 1 CAPSULE BY MOUTH TWICE DAILY X 5 DAYS 08/31 completed Not Available Not Available Not Available mupirocin 2 % topical ointment APPLY TO AFFECTED AREA 3 TIMES A DAY 08/31 completed Not Available Not Available Not Available albuterol sulfate HFA 90 mcg/actuati on aerosol inhaler INHALE 2 PUFFS BY MOUTH EVERY 4 TO 6 HOURS active Not Available Not Available No t Available Vitals None Recorded Social History None recorded. Functional Status None recorded. Mental Status None recorded. Family History Nothing Reported. Medical History No medical history recorded. Gynecological HistoryNo gynecological history recorded. Obstetrics History GPAL:G 0 P 0 0 0 0 Immunizations Vaccine Type Date Status Note Provider Nam e and Address Organization Details Recorded Time Influenza, split virus, quadrivalent, PF 04/27/2023 completed Tiffany Hoff [facility], 04/27/2023 12:04:37 Influenza, split virus, trivalent, PF 05/04/2024 completed Araceli Buckley [facility], 05/04/2024 10:46:44 Influenza, MDCK, quadrivalent, PF 04/29/2022 completed NYDIA ROBERTS [address] [facility] [address], [place], [address], [facility], 10/18/2023 13:57:35 COVID-19, mRNA, LNP-S, PF, 30 mcg/0.3 mL dose 08/06/2020 completed NYDIA ROBERTS [address] [place] [address] [address], [place], [address], [facility], 10/18/2023 13:57:35 COVID-19, mRNA, LNP-S, PF, 30 mcg/0.3 mL dose 05/06/2021 completed NYDIA ROBERTS [address] [place] [address] [address], [place], [address], [facility], 10/18/2023 13:57:35 COVID-19, mRNA, LNP-S, PF, 30 mcg/0.3 mL dose 07/20/2020 completed NYDIA ROBERTS [address] [place] [address] [address], [place], [address], [facility], 10/18/2023 13:57:35 COVID-19, mRNA, LNP-S, bivalent, PF, 30 mcg/0.3 mL dose 04/29/2022 completed KEYLA CORREIA DYLONLETTY [address] [place] [address] [address], [place], [address], [facility], 10/18/2023 13:57:35 Past Encounters Encounter ID Performer Location Encounter Start Date Encounter Closed Date Diagnosis/Indication Diagnosis SNOMED-CT Code Diagnosis ICD10 Code Diagnosis Note [id number] [facility] [address] [facility] [place] [address] 11/07/2022 10:18:13 11/08/2022 17:17:54 Acute pharyngitis 589530803 J02.9 [id number] [facility] [address] [facility] [place] [address] 11/07/2022 10:16:01 11/17/2022 13:39:45 Acute pharyngitis [id number] J02.9 [id number] [facility] [address] [place] [address],[address] [place] [address] 04/27/2023 11:52:45 04/28/2023 13:16:38 Active or passive immunization [id number] Z23 [id number] Gladis Dowd [facility] [address] [place] [address],[address] [place] [address] 10/18/2023 09:06:42 10/18/2023 19:55:07 Streptococcal sore throat [id number] J02.0 [id number] Fatuma Fountain [facility] [address] [place] [address],[address] [place] [address] 11/02/2023 09:16:22 11/02/2023 10:54:49 Streptococcal sore throat [id number] J02.0 Abx sent in alternate task. [id number] [facility] [address] [place] [address],[address] [place] [address] 05/04/2024 08:17:27 05/04/2024 13:10:43 Active or passive immunization [id number] Z23 [id number] [facility] [address] [place] [address],[address] [place] [address] 07/22/2024 12:40:04 07/22/2024 22:04:22 Acute pharyngitis [id number] J02.9 Health Concerns Section Related Observation LastModified by Organization Detai ls LastModified Time None Recorded Concern Status LastModified by Organization Details LastModified Time None Recorded Advance Directives Directive None Recorded Payers Encounter Date Sequence Insurance Name Policy Number Policy Roy Covered Member ID Roy Member ID Guarantor Name 04/27/2023 1 [facility] [id number] Keylara Gael Johnt [id number] Keyla Alhert 10/18/2023 1 [facility] [id number] Keylara Gael Maynardlert [id number] Keyla Alhert 11/02/2023 1 [facility] [id number] Keylara Gael Johnt [id number] Keyla Alhert 05/04/2024 1 [facility] [id number] Keylara Gael Maynardlert [id number] Keyla Alhert 07/15/2024 1 [facility] [id number] Keyla Gael Manny [id number] Keylara Whitten OBGyn Episode No OBEpisode recorded.
[2024-11-11 16:24] VITALS: BMI 41.1
--- NOTE | 2024-11-11 16:24 | WPDHOMESLEEP ---
Sleep Study - Home Unattended Date of Study: 10/22/24 Ordering Provider: Kalli Salmeron MD Interpreting Provider: Elise Davis DO Home Sleep Study Type: Watch PAT Height: 1.57 m Weight: 102.058 kg Body Mass Index: 41.1 Neck Circumference (inches): 16 [place]: 12 Reason for Sleep Study Daytime hypersomnia Sleep History The patient is a 38-year-old female that had a sleep study ordered by her primary care physician for evaluation of sleep apnea. The patient admits to snoring loudly, excessive daytime sleepiness and interruptions in breathing while asleep. She does choke or gasp at night. She does have trouble breathing on her back. She does have morning headaches. She does have a dry or sore mouth / throat in the morning. She denies nocturnal heartburn. She denies nocturia. She denies having difficulty falling asleep. She does have difficulty staying asleep. She denies having difficulty returning to sleep if she wakes up throughout the night. She denies any hypnotic or sedative use. She denies feeling anxious about sleep. She does feel tired or sleepy during the day. She does feel tired in the morning. She does have the urge to fall asleep during the day. She does feel drowsy while driving. She denies sleep paralysis, cataplexy and hypnagogic/ hypnopompic hallucinations. She does clench or grind her teeth. She denies kicking or jerking her legs excessively. She denies having a restless feeling in her legs. She goes to bed at 10:00 p.m. on work days and at 11:00 p.m. on her days off. It takes her 15 minutes to fall asleep. She gets 7 hours of sleep on work days and 9 hours on her days. Her sleep is not at all restorative on her days off. She denies taking any planned naps. She denies dream enactment behavior. She denies sleep walking as an adult. She consumes 3-4 cups of caffeinated beverage per day. She denies tobacco and alcohol use. She exercises 1-2 nights per week. [facility] Past Medical History Medical History Left lower quadrant pain Encounter for insertion of mirena IUD 03/18/2020 Abnormal mammogram of left breast 9.8.21 follow up dx mamm/ ultrasound normal Normal endoscopy 2..21: NOSE Breast mass, left (~2018) Surgical History Surgical History Delivery by section Hx of breast biopsy 2019 L/ papilloma/benign Family History Family History Mother Diabetes mellitus Grandparent Diabetes mellitus Hypertension Family history of elevated blood lipids Cerebrovascular accident Family history of dementia Father Hypertension Other Family history of type 2 diabetes mellitus Social History Social History Smoking status: Never smoker Alcohol intake: current Alcohol use details: rarely Substance use: never Substance use type: does not use Do You Feel Safe in your Home?: Yes Lack of Transportation: No Lack of Food: Never True Current Housing: I Have Housing Concerned About Future Housing: No Difficulty Paying Gas/Electric Bills: No Difficulty Paying for Meds: No Currently Unemployed: No Education: Master's Degree or Higher Difficulty w/ Childcare or Family Care: No Living arrangements: with family Occupation/Education: occupation Gender identity (if verbalized by the patient): Female Sexual Orientation (if Verbalized by the Patient): Straight or Heterosexual Medications Home Medications ?Medication ?Instructions ?Recorded ?Confirmed ?Type levonorgestrel (Mirena) 1 insert intrauterine ONCE 07/01/21 10/10/24 History sertraline 100 mg tablet 200 mg (2 x 100 mg) PO DAILY #180 04/17/24 10/10/24 Rx tabs valacyclovir 1 gram tablet 1,000 mg PO Q12H #20 tabs 05/14/24 10/10/24 Rx (Valtrex) bupropion HCl 150 mg 24 hr tablet, 150 mg PO QAM #90 tabs 10/10/24 10/10/24 Rx extended release (Wellbutrin XL) ferrous sulfate 325 mg (65 mg 325 mg PO DAILY #90 tabs 10/16/24 Rx iron) tablet Sleep Procedure The sleep study was completed using StorematesT a technically adequate device with seven channels: peripheral arterial tone, actigraphy, body position, snore, respiratory movement, pulse oximetry, sleep staging, and heart rate. Prior to using the device, the patient received verbal and written instructions for its application and was provided with the help desk phone number for additional telephonic instruction with 24-hour availability of qualified personnel to answer questions. The study was scored using CMS guidelines. Sleep Architecture The total recording time is 8 hrs, 27 min. The total sleep time is 7 hrs, 17 min. Sleep latency is 10 minutes. REM latency is 161 minutes. The patient had 13 episodes of waking. Sleep architecture shows 15.7% deep sleep, 63.7% light sleep, and (as % Total Sleep Time) showed NREM (Light 63.7%; Deep 15.7%), and a 20.7% stage REM. The patient spent 43.2% of total sleep time in the supine position. Sleep efficiency was 86.19. Respiratory Analysis The overall AHI (pAHI 4%:) is 5.5. The overall AHI (pAHI 3%:) is 13.1. The central AHI is 1.8. The AHI was 10.4 in NREM and 23.3 in REM sleep. The AHI was 20.7 in Supine and 7.1 in Non-supine sleep. Percent of Karson French respirations is 0.0. Oximetry Data The oxygen desaturation index (NIDIA 4%:) is 5.1. The mean saturation is 93%, and the lowest saturation is 87%. Time spent with saturation < 88% is 0.2 minutes. Snoring Profile Snoring average intensity is 40 dB. The patient snored above 45 decibels for 10.4 minutes, 2.4% of sleep time. Cardiac Profile The average pulse rate is 71 beats per minutes. The lowest pulse rate is 56 bpm. The highest pulse rate reported is 106 bpm. Atrial fibrillation was not detected. Premature beats occur <0.1 per minute. Assessment and Plan Assessment and Plan (1) LOURDES (obstructive sleep apnea): Code(s): G47.33 - Obstructive sleep apnea (adult) (pediatric) Status: Acute Assessment and Plan: The patient had an overall AHI of 5.5 with desaturation down to 87%. This is consistent with mild sleep apnea. Due to the patient's anxiety, she qualifies for treatment. I recommend that the patient be prescribed AutoPAP 5-15 cm H2O, CPAP mask/filters/tubing and heated humidity. A mandibular advancement device is also an acceptable treatment option. This should be used with all episodes of sleep.? Compliance should be reviewed within 31-90 days of starting therapy for usage greater than 4 hours per night greater than 70% of the nights. The patient should be asked about symptoms such as?excessive daytime sleepiness, quality of sleep, decreased nocturia, increased?mental functioning such as memory, mood, and concentration. Data The data obtained during this sleep study is adequate for interpretation. Certification This sleep study has been reviewed by a board certified sleep medicine physician.
== END 2024-10-23 12:05 | disposition home or self-care (01) ==
LOC: ANHCSM 09:01
PROVIDERS: PCP Family Medicine; Visit Provider Family Medicine
DX: G47.33 Obstructive sleep apnea (adult) (pediatric) (principal); G47.10 Hypersomnia, unspecified; R06.83 Snoring
CPT/HCPCS: 95800